=== PATIENT | male | born 2000 | race Two or more races ===

== ENCOUNTER 2025-04-11 08:02 | Emergency (ER) | payer OTHER, SELFPAY ==
[2025-04-11 08:03] VITALS: BP 126/80; PULSE 90; RESP 16; TEMP 37.1; O2SAT 96
[2025-04-11 08:04] VITALS: BMI 21.9
--- NOTE | 2025-04-11 08:15 | EKG_ITS ---
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
--- NOTE | 2025-04-11 08:16 | PD.EDADULT ---
ED General RME/HPI General Chief complaint: Medical Clearance Stated complaint: MEDICAL CLEARANCE Time Seen by Provider: 04/11/25 08:15 Arrival date/time: 04/11/25 08:02 RME / HPI RME / HPI narrative: DR. 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 There is no fever. He states he has a slight cough but no sputum. He has no other complaint or problem he has no other injury takes no medicines has no heart lung or kidney problems. Is no leg edema no history of DVTs. PMHx: Denies any PMHx, surgeries, daily medications, or known allergies. Social Hx: Patient denies any tobacco, alcohol, or substance use. Related Data Previous Rx's ?Medication ?Instructions ?Recorded amoxicillin 875 mg-potassium 1 tab PO BID #14 tabs 04/11/25 clavulanate 125 mg tablet Allergies Allergy/AdvReac Type Severity Reaction Status Date / Time No Known Allergies Allergy Verified 04/11/25 08:27 Review of Systems Review of Systems Narrative Review of Systems: Review of Systems: Constitutional: DENIES: Fevers,; Eyes: DENIES: Loss of vision, Head/Ear/Nose: DENIES: Loss of hearing. Throat: Denies dysphagia. Cardiovascular: See HPI for chest pain, denies dyspnea or syncope. Respiratory: DENIES: Shortness of breath, Gastrointestinal: DENIES: Rectal bleeding or melena. Genitourinary: DENIES: Dysuria (painful or difficult urination),; Musculoskeletal: DENIES: Arthralgia (pain in a joint),; Skin: DENIES: Rash,; Neurological: DENIES: loss of function or movement,; Psychiatric: DENIES: recent major life stressor, emotional problem, illicit drug use or abuse,; Endocrinology: DENIES: Weight change,; Hematologic/Lymphatic: DENIES: Abnormal bruising. Allergic/Immunologic: DENIES: Urticaria (hives), Past Medical History Social History SMOKING STATUS: Never smoker SUBSTANCE USE: does not use ALCOHOL: Never ED Exam Narrative Physical exam: Physical Exam: General: The vital signs were reviewed. The patient is non-toxic, in no apparent distress and appears healthy with a patent airway, no respiratory distress and has no apparent circulatory problems. Head & Scalp: Normocephalic, atraumatic. Face: Appears normal and is without lesions, deformity. Ears: Left external pinna appears normal. Right external pinna appears normal. Eyes: The sclera is anicteric. No obvious photophobia. The Left and Right Orbit/Lid/Conjunctiva appears normal without swelling, discoloration or injection. Nose: The nose is without deformity, discharge or tenderness; Throat: Appears normal. The mucous membranes are pink and moist without exudates, redness or mass seen. The tongue appears normal. Neck: The neck is supple and no apparent mass or adenopathy. Chest: Patient has no palpable chest wall tenderness. Patient does have pain when he starts inspiring and has a catch with sudden pain in the right chest. He is able to breathe through this. The chest wall is normal in size and symmetry and has no chest wall tenderness or crepitus. The patient displays normal ventilator effort without retractions, accessory muscle use and has adequate air movement bilaterally with no wheezes and no rales. Cardiovascular: Regular rate and rhythm; No murmurs, rubs, or gallops; Gastrointestinal: The abdomen appears normal. No obvious hernias or mass. The abdomen is soft and benign, non-distended, with no pain, no guarding and no rebound tenderness. Bowel sounds are present and normal sounding. No CVA tenderness. Genitourinary: Back/Spine: No complaints of pain. Extremities/Musculoskeletal/lymphatic: The bilateral upper and lower extremities are warm. There is no evidence of arterial insufficiency. There is no evidence of venous insufficiency/edema. The patient spontaneously moves bilateral upper and lower extremities with no pain and no limitation of movement. There is no apparent, injury or trauma. Skin: The skin is warm, dry and intact. No rashes. No petechia. No purpura. No abnormal bruising. The color is appropriate with no cyanosis. Mental status/Psychiatric: Mental status is appropriate for age. The patient has no apparent delusions, visual hallucinations, no apparent audible hallucinations. The patient has no apparent suicidal thoughts/ideation and no apparent homicidal thoughts/ideation. Neurological: The patient is awake, alert, interactive, cordial, cooperative and is oriented to name and situation. The patient follows commands and answers historical question with no impairment. There is no visual disturbance apparent. The pupils are equal and reactive bilaterally with normal eye movements and no diplopia The bilateral upper and lower extremities have normal strength, normal range of motion and normal functioning. The gait, station and balance appear to be baseline with no acute change Course Quality Measures none Orders Category Date Time Status EKG (ED ONLY) *Do not use* NOW Care 04/11/25 08:15 Completed EKG (ED Only) Stat Exams 04/11/25 08:15 Draft XR chest 1V portable Stat Exams 04/11/25 08:15 Completed B-Type Natriuretic Peptide Stat Lab 04/11/25 08:50 Completed CBC Stat Lab 04/11/25 08:50 Completed Comprehensive Metabolic Panel Stat Lab 04/11/25 08:50 Completed D-Dimer Stat Lab 04/11/25 08:50 Completed Drug Screen,Urine Stat Lab 04/11/25 08:33 Completed Lipase Stat Lab 04/11/25 08:50 Completed Magnesium Stat Lab 04/11/25 08:50 Completed Troponin I Stat Lab 04/11/25 08:50 Completed Urinalysis, C/S if Indicated Stat Lab 04/11/25 08:33 Completed Azithromycin Po [Zithromax PO] Med 04/11/25 11:55 Once 500 mg PO X1 ONE cefTRIAXone [Rocephin] 1,000 mg Med 04/11/25 11:55 Ordered Lidocaine 1% 20 ml [Xylocaine 1% 20 ML] 2.1 ml IM X1 Vital Signs Vital signs: Vital Signs Temperature 98.7 F 04/11/25 08:03 Pulse Rate 90 04/11/25 08:03 Respiratory Rate 16 04/11/25 08:03 Blood Pressure 126/80 04/11/25 08:03 Pulse Oximetry (%) 96 04/11/25 08:03 Oxygen Delivery Method Room Air 04/11/25 08:03 Discharge Plan Plan Patient Disposition: Penitentiary/Court/Law Prescriptions/Referrals Prescriptions/Med Rec: New amoxicillin-pot clavulanate 875-125 mg tablet 1 tab PO BID Qty: 14 0RF Referrals: No Primary/Family,Physician [Primary Care Provider] - 04/13/25 (No work until reevaluated by ) Problem List Clinical Impression: Pleuritic chest pain, Pneumonia, Medical clearance for incarceration Impression comment: Patient has right-sided perihilar pneumonia on chest x-ray causing secondary pleuritic chest pain and leukocytosis. Patient/Caregiver Discharge Instructions Education Materials: ED Pneumonia (Adult) Additional Instructions: Today your medical workup reveals pleuritic chest pain most likely caused by the right perihilar pneumonia. You got a dose of Rocephin 1 g IM and azithromycin 500 mg orally. You need to get a prescription for Augmentin 875 mg twice daily for the next 7 days. You need to follow-up with the correction doctor in 2 days for recheck. No work until that time. Further evaluation will dictate when you can be released back to usual duties. You are getting worse with increasing shortness of breath please be reevaluated and return to the hospital if needed. Also use Tylenol for any fevers or bodyaches. Print Language: [place] Citizen MDM Narrative MDM hospital course: Patient presents with acute onset of pleuritic chest pain started at 10 PM last night. There is no obvious inciting event. He does not appear to be ill. His lungs are clear. Does have a catch with deep inspiration. 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 Medical workup reveals normal vital signs white count was 16.3 hemoglobin 15.6 note white count is elevated D-dimer came back negative sodium 134 potassium 3.7 chloride 98 CO2 26 BUN 10 creatinine 0.8 urinalysis essentially is negative with some ketones 1+ drug screen was negative chest x-ray surprisingly has a significant right perihilar pneumonia a little more prominent and you expect from just a simple viral infiltrate. Again today's patient has no obvious cardiac no obvious PE but does have an infectious pneumonia probably causing his pleuritic chest pain with an elevated white count. Plan this time we will give him 1 dose of Rocephin IM will give him some azithromycin p.o. 500 mg we will start him on Augmentin 875 twice daily for 7 days The officers with the patient to go to make sure he has a follow-up with the correction doctor provider in 2 days and will be off either duty until cleared by the correction providers. Clinical Information Provided by patient and law enforcement Medical Records Reviewed None Meds/Rx Considered, not Ordered None Labs/Rad/Tests considered, not Ordered None Chronic Illness/Social Conditions Add or document further as needed: Denies any PMHx, surgeries, daily medications, or known allergies. EKG Interpretation EKG #1: Date/time of EK04/11/25 08:23 am EKG interpretation: EKG #1 was done on arrival to normal EKG otherwise, sinus rhythm, rate 95, no STEMI. There is no old EKG to compare to. Lab Interpretation Labs: see narrative above Imaging Imaging interpretation: see narrative above Radiology reports / interpretation(s): Procedure(s): XR chest 1V portable Accession Number(s): [id number] cc: Stanley Puckett MD; Jerardo Guerra MD~ Examination: AP chest single view Technique one AP portable semiupright chest single view Date and time: April 11, 2025, 0855 hrs. Indications: Chest pain today. Findings: Right perihilar pneumonia. Normal heart size. Left lung clear. Impression: Significant right perihilar pneumonia Dictated By: Jerardo Guerra MD Medication Administration(s) none Medication Administration History Azithromycin (Azithromycin 250 Mg Tablet) 500 mg PO X1 ONE Stop: 04/11/25 11:56 Ceftriaxone Sodium 1,000 mg/ (Lidocaine HCl 2.1 ml) 0 mg IM X1 ONE Stop: 04/11/25 11:56 Diagnosis Differential diagnosis: pleurisy, pneumothorax, pneumonia, pulmonary embolism, costochondritis Most likely dx, and/or detailed dx discussion: Pleuritic chest pain Pneumonia Medical clearance for incarceration Dispositon Disposition: Incarceration/CPS
[2025-04-11 08:44] LABS: Collection Type, Urine Clean Catch
[2025-04-11 08:51] LABS: Bilirubin,Urine Negative (Negative); Blood,Urine Negative (Negative); Clarity,Urine Clear (Clear/Hazy); Color,Urine Colorless (Lt Yel-Yel); Culture Indicated,Urine Not Indicated; Glucose, Urine Negative (Negative); Ketones,Urine 1+ (Negative); Leukocyte Esterase,Urine Negative (Negative); Nitrite,Urine Negative (Negative); Protein,Urine Negative (Neg - Trace); RBC,Urine < 1 /hpf (0-3); Squamous Epithelial Cell,Urine < 1 /hpf (0-5); Urobilinogen,Urine Negative mg/dL (0.0-1.0); WBC,Urine 1 /hpf (0-5)
[2025-04-11 08:58] LABS: Amphetamine/Methamp Scrn,U Negative (Negative); Barbiturate Screen,Urine Negative (Negative); Benzodiazepines Screen,Urine Negative (Negative); Benzoylecgonine Screen, Ur Negative (Negative); Fentanyl Screen,Urine Negative (Negative); Opiate Screen,Urine Negative (Negative); THC Screen,Urine Negative (Negative)
[2025-04-11 09:04] LABS: Basophils % (Auto) 0 % (0-2.5); Eosinophils # (Auto) 0.3 Thou/mm3 (0.0-0.5); Eosinophils % (Auto) 2 % (0-10); Hematocrit 44.6 % (41.0-53.0); Hemoglobin 15.6 g/dL (13.5-16.0); Immature Granulocytes % (Auto) 0 % (0-0); Immature Granulocytes Auto 0.05 Thou/mm3 (0.00-0.00); Lymphocytes # (Auto) 1.6 Thou/mm3 (1.0-4.8); Lymphocytes % (Auto) 10 % (10-50); Mean Corpuscular Hemoglobin 29.8 pg (25.0-35.0); Mean Corpuscular Volume 85 fL (80-100); Monocytes # (Auto) 1.7 Thou/mm3 (0.0-0.8); Monocytes % (Auto) 10 % (0-12); Neutrophils # (Auto) 12.6 Thou/mm3 (1.8-7.7); Neutrophils % (Auto) 78 % (37-80); Nucleated Red Blood Cell % 0 /100 WBC (0); Platelet Count 207 Thou/mm3 (140-440); RDW Standard Deviation 39.3 fL (35.1-43.9); Red Blood Count 5.23 Miln/mm3 (4.50-5.90); White Blood Count 16.3 Thou/mm3 (3.8-10.6)
[2025-04-11 09:24] LABS: D-Dimer < 250 ng/mL (<600)
[2025-04-11 09:33] LABS: B-Type Natriuretic Peptide < 20 pg/mL (0-100)
[2025-04-11 09:42] LABS: Alanine Aminotransferase 17 U/L (10-49); Albumin/Globulin Ratio 1.9 (1.2-2.2); Alkaline Phosphatase 101 U/L (46-116); Anion Gap 10 (7-16); BUN/Creatinine Ratio 13 Ratio (12-20); Bilirubin,Total 1.2 mg/dL (0.3-1.2); Blood Urea Nitrogen 10 mg/dL (9-23); Calcium 9.7 mg/dL (8.3-10.6); Calcium (Corrected) 9.7 mg/dL (8.5-10.1); Carbon Dioxide 26.3 mMol/L (20.0-31.0); Chloride 98 mMol/L (98-107); Creatinine (Component) 0.8 mg/dL (0.6-1.3); Estimated Creatinine Clearance 127.9 mL/min (>60); Globulin 2.6 gm/dL (2.3-3.5); Glucose 108 mg/dL (74-106); Magnesium 1.9 mg/dL (1.6-2.6); Osmolality,Calculated 268 (275-295); Potassium 3.7 mMol/L (3.4-5.1); Sodium 134 mMol/L (136-145); Total Protein 7.6 gm/dL (5.7-8.2); Troponin I < 0.020 ng/mL (0.0-0.045); eGFR > 60 See Note
[2025-04-11 09:54] LABS: Lipase 26 U/L (12-53)
[2025-04-11 09:56] VITALS: BP 109/78; PULSE 88; RESP 17; TEMP 37.5; O2SAT 96
--- NOTE | 2025-04-11 10:15 | PC.NURSE ---
Patient presents to ED with c/o chest pain onset since 22pm last night. Patient is alert and oriented no apparent distress noted. Patient accompanied by law enforcement. Patient answering all questions appropriately. Patient call light within reach and updated with plan of care.
[2025-04-11] MEDS: AZITHROMYCIN 250 MG TABLET 500 MG PO (12:14)
[2025-04-11] MEDS: cefTRIAXone 1,000 MG, LIDOCAINE 1% 20 ML 2.1 ML IM (12:14)
[2025-04-11 12:20] VITALS: BP 114/75; PULSE 82; RESP 16; O2SAT 96
== END 2025-04-11 12:20 ==
PROVIDERS: Emergency Provider Emergency Medicine
DX: Z02.89 Encounter for other administrative examinations (principal); J18.9 Pneumonia, unspecified organism
CPT/HCPCS: 36415; 71045; 80053; 80307; 81001; 83690; 83735; 83880; 84484; 85025; 85379; 96372; 99283; J0696; J3490; A9270